=== PATIENT | female | born 1985 | race Caucasian/White ===

== ENCOUNTER 2016-07-06 22:23 | Inpatient (IN) | payer OTHER ==
[~2016-07-06] VITALS: Ht 165.1 cm; Wt 84.0 kg
[~2016-07-06 22:23] MED LIST: FERR-55 PO; PREN1TAB49 PO
[2016-07-07] MEDS ORDERED: ACETAMINOPHEN 500 MG TAB PO ONE (00:09)
[2016-07-07 00:10] VITALS: Ht 165.1 cm; Wt 84.0 kg
[2016-07-07 00:11] VITALS: BP 125/83; PULSE 117; RESP 20
[2016-07-07] MEDS ORDERED: NITR-58 PO (00:15)
[2016-07-07] MEDS: SOD CHLORIDE 0.9% 1,000 ML IV SCH ×4 (00:31→23:30)
--- NOTE | 2016-07-07 00:39 | HP ---
Date/Time of Note Date/Time of Note DATE: 07/07/16 TIME: 00:30 OB - History Hx of Present Free Text/Dictation Pt is a 30yo at 36+2 presenting with 2d hx of total body aches, fevers and chills. Pt reports hx of UTI 2wks ago for which she took Nitrofurantoin. In the clinic today she was given another Rx for the same antibiotic. Pt denies dysuria , contractions, LOF or VB. Reports normal FM. Estimated Due Date: August 01, 2016 : 3 Para: 2 Care: Good Care Obstetrical Complications: None Medical Complications: None Past Family/Social History * Past Medical, Surgical, Family and Obstetric Histories reviewed from chart. Blood Type: A+ Rubella: unknown RPR/VDRL: Negative GBS Status: Positive HBsAG: Negative OB Admission Exam Vital Signs Vital Signs Vital Signs Date Time Temp Pulse Resp B/P Pulse Ox O2 Delivery O2 Flow Rate FiO2 07/07/16 00:11 103.1 117 20 125/83 Room Air FHR 170s, diminished [id number] variability, +accels, no decels Back: bilateral CVAT R>L Physical Exam HEENT: WNL Heart: Other (tachycardia, normal rhythm) Lungs: Clear Abdomen: WNL Extremities: Normal Cervical Dilatation: 2cm Effacement: 50% Station: 0 (posterior) Membranes: Intact Contractions on Admission: < 5 Minutes Apart OB Assessment/Plan Reason for admission: other Other Assessment: Pyelonephritis Maternal and tachycardia Asymptomatic uterine contractions Other plan: 1)Pyelonephritis: -CBC, CMP -UA and UCx -Blood cultures x2 -IVF bolus -Tylenol 1g PO x1 now -IV Ceftriaxone 1g q24H 2)FWB: -Overall reassuring. Likely tachy 2/2 fever and infection. Suspect FHR will return to normal when fever resolves and maternal tachycardia improves -BPP, EFW -CEFM 3)Labor: -Pt possibly in early labor 2/2 infection -Admission labor labs ordered, including Rubella -Monitor for signs/sxs labor or resolution of UCs with IV hydration and management of infection Plan d/w pt. Questions answered to her satisfaction. KELSY IZQUIERDO MD July 07, 2016 00:39
[2016-07-07 01:02] LABS: ADD SCAN DIFF NO
[2016-07-07 01:05] LABS: ABNORMAL IP MESSAGE 1; BASOPHILS % 0.2 % (0.0-2.0); HEMOGLOBIN 11.4 g/dl (12.0-16.0); LYMPHOCYTES # 0.5 10^3/ul (0.8-2.9); MEAN CORPUSCULAR HEMOGLOBIN 31.1 pg (29.0-33.0); MEAN CORPUSCULAR HGB CONC 36.8 g/dl (32.0-37.0); MEAN CORPUSCULAR VOLUME 84.5 fl (82.0-101.0); MEAN PLATELET VOLUME 11.1 fl (7.4-10.4); MONOCYTE # 0.4 10^3/ul (0.3-0.9); MONOCYTES % 3.6 % (0.0-11.0); NEUTROPHIL # 9.9 10^3/ul (1.6-7.5); NEUTROPHILS % 90.6 % (39.0-77.0); PLATELET COUNT 153 10^3/UL (140-415); RED BLOOD COUNT 3.67 10^6/ul (4.20-5.40); WHITE BLOOD COUNT 10.9 10^3/ul (4.8-10.8)
[2016-07-07 01:06] LABS: ADD UMIC YES; URINE BILIRUBIN (Dip) NEGATIVE (NEGATIVE); URINE BLOOD (Dip) 2+ (NEGATIVE); URINE COLOR LT. YELLOW (YELLOW); URINE GLUCOSE (Dip) NEGATIVE (NEGATIVE); URINE KETONES (Dip) 40 (NEGATIVE); URINE LEUKOCYTE ESTERASE (Dip) 2+ (NEGATIVE); URINE NITRITE (Dip) NEGATIVE (NEGATIVE); URINE TOTAL PROTEIN (Dip) 1+ (NEGATIVE); URINE UROBILINOGEN (Dip) 0.2 E.U./dL (0.1-1.0)
[2016-07-07 01:23] LABS: SQUAMOUS EPITHELIAL CELL,UR MODERATE
[2016-07-07 01:24] LABS: BACTERIA,URINE MANY; MUCUS,URINE MODERATE
[2016-07-07 01:28] LABS: PARTIAL THROMBOPLASTIN TIME 29.7 Sec (25.0-35.0); PROTIME 13.2 Sec (12.2-14.2)
[2016-07-07 01:33] LABS: ALBUMIN/GLOBULIN RATIO 0.91
[2016-07-07 01:34] LABS: ALBUMIN 3.2 g/dl (3.3-4.9); BILIRUBIN,INDIRECT 0.7 mg/dl (0-1.1); BILIRUBIN,TOTAL 0.7 mg/dl (0.2-1.3); CALCIUM 8.5 mg/dl (8.4-10.2); CREATININE 0.49 mg/dl (0.44-1.00); POTASSIUM 3.1 mmol/L (3.5-5.1); TOTAL PROTEIN 6.7 g/dl (6.1-8.1)
--- NOTE | 2016-07-07 01:36 | RADRPT ---
PROCEDURE: Obstetrical ultrasound, limited. CLINICAL INDICATION: Pelvic pain. TECHNIQUE: Multiple sonographic images of the pelvis were obtained using transabdominal technique . Images were obtained with whipple scale and color Doppler. The images were reviewed on a PACS works tation. COMPARISON: No prior studies are available for comparison. FINDINGS: There is a single living intrauterine gestation with the fetus in a vertex presentation. hear t tones of 168 beats per minute are identified. The placenta is posterior in location, grade 2. Th ere is no evidence of placenta previa or abruption. Measurements were made in order to determine age. The results are as follows: BPD =9.12 cm HC =32.42 cm AC =32.52 cm FL =7.17 cm. Estimated gestational age of approximately 36 weeks and 5 days. The estimated date of delivery is 07/30/2016. The EFW = 2981 +/- 447 grams. Estimated weight percentage equals 61.4%. IMPRESSION: Single viable intrauterine gestation of approximately 36 weeks and 5 days, with an ultrasound TRAVIS of 07/30/2016. .Kulwant Clemente MD, MD Date Time Electronically viewed and signed by .Kulwant Clemente MD, MD on 07/07/2016 01:35 .T/
--- NOTE | 2016-07-07 02:06 | RADRPT ---
PROCEDURE: US OB biophysical profile. CLINICAL INDICATION: labor TECHNIQUE: Multiple sonographic images of the pelvis were obtained. The images were reviewed on a PACS workstation. COMPARISON: No pertinent prior examinations were submitted for comparison. FINDINGS: There is a single viable intrauterine gestation. Cardiac activity is present with 171 beats per min [place]. There is a vertex presentation. The placenta is posterior, grade 2 in appearance. There is a normal amount of amniotic fluid with an LIZ = 10 cm. Biophysical profile: movement 2/2 tone 2/2. breathing 2/2 LIZ 2/2 Total 10/09 IMPRESSION: Normal biophysical profile. RPTAT: HIKT . .Juan Rodriguez MD, MD Date Time Electronically viewed and signed by .Juan Rodriguez MD, on 07/07/2016 02:05 .T/
[2016-07-07] MEDS: CEFTRIAXONE 1 GM/50 ML (PMX) 50 ML IVPB SCH (02:33)
[2016-07-07] MEDS: ACETAMINOPHEN 325 MG TAB PO PRN ×3 (08:47→19:58)
[2016-07-07] MEDS: MULTIVIT/MIN/FOLATE/IRON/PREN TAB PO SCH (08:47)
[2016-07-07] MEDS: LACTATED RINGER'S 1,000 ML IV SCH ×3 (09:44→22:14)
[2016-07-07] MEDS ORDERED: GENTAMICIN 120 MG/NS (PMX) 100 ML IVPB SCH (10:00)
[2016-07-07] MEDS ORDERED: TERBUTALINE 1 ML ONE (10:04)
[2016-07-07] MEDS ORDERED: TERBUTALINE 1 MG/ML INJ SC ONE (10:30)
--- NOTE | 2016-07-07 12:45 | QN ---
Documentation Comment This is a 30 years old female 4 para 2 ,36 and 3 days , with a EDC of August 01, 2006 admitted to [facility] with the diagnosis of pyelonephritis, patient was placed on Rocephin 2 g every24 hour and gentamicin 120 mg every 8 hours ,at approximately 12:00 she spiked temperature to 101.2 following a brief chills, blood culture ordered 3 every 30 minute urine sent for culture and sensitivity cooling measure applied. HAMILTON AL MD July 07, 2016 12:45
[2016-07-07] MEDS: GENTAMICIN 80 MG/NS (PMX) 50 ML IVPB SCH (18:16)
[2016-07-08] MEDS: LACTATED RINGER'S 1,000 ML IV SCH ×5 (01:00→21:00)
[2016-07-08] MEDS: CEFTRIAXONE 1 GM/50 ML (PMX) 50 ML IVPB SCH (01:04)
[2016-07-08] MEDS: SOD CHLORIDE 0.9% 1,000 ML IV SCH ×2 (01:18→15:30)
[2016-07-08] MEDS: ACETAMINOPHEN 325 MG TAB PO PRN ×3 (01:30→18:57)
[2016-07-08] MEDS: GENTAMICIN 80 MG/NS (PMX) 50 ML IVPB SCH ×3 (02:15→17:34)
[2016-07-08] MEDS: MULTIVIT/MIN/FOLATE/IRON/PREN TAB PO SCH (09:16)
[2016-07-08] MEDS: PIPER-TAZO 3.375 GM IV (PMX) 100 ML IVPB SCH ×2 (12:03→18:09)
--- NOTE | 2016-07-08 15:37 | PN ---
Date/Time of Note Date/Time of Note DATE: 07/08/16 TIME: 15:24 OB Subjective Subjective Subjective Afebrile as of this morning spiked temperature to103 last night and 101.3 today at 1500, urine culture positive for E. coli over 100,000 she was placed on Zosyn 3/375gm every 6 hours while continuing gentamicin 80 mg every 8 hours, infectious disease consultation has been requested. HAMILTON AL MD July 08, 2016 15:34
--- NOTE | 2016-07-08 16:14 | RADRPT ---
PROCEDURE: Retroperitoneal ultrasound. CLINICAL INDICATION: Flank pain, recurrent urinary tract infections. TECHNIQUE: Gilmore scale and color doppler ultrasound images of the retroperitoneum, kidneys, urinary bladder COMPARISON: Pelvic ultrasound 07/07/2016 FINDINGS: Right kidney 12.7 cm in length. Right renal cortical thickness is preserved. Left kidney 13.5 cm in length. Left renal cortical thickness is preserved. Normal echogenicity. Mild prominence of the renal pelvis bilaterally without caliectasis. No renal calculi. No focal lesions. Bladder: Moderately distended without focal lesion IMPRESSION: Mild pelviectasis without caliectasis of both kidneys. No evidence of renal calculi. Moderately distended urinary bladder. RPTAT: AADD .James Cody MD, MD Date Time Electronically viewed and signed by .James Cody MD, on 07/08/2016 16:14 .B/
[2016-07-09] MEDS: PIPER-TAZO 3.375 GM IV (PMX) 100 ML IVPB SCH ×5 (00:23→23:52)
[2016-07-09] MEDS: GENTAMICIN 80 MG/NS (PMX) 50 ML IVPB SCH ×3 (02:41→17:35)
[2016-07-09] MEDS: LACTATED RINGER'S 1,000 ML IV SCH ×4 (03:11→21:02)
[2016-07-09] MEDS: ACETAMINOPHEN 325 MG TAB PO PRN ×2 (07:54→19:38)
[2016-07-09] MEDS: MULTIVIT/MIN/FOLATE/IRON/PREN TAB PO SCH (09:16)
--- NOTE | 2016-07-10 01:51 | PN ---
Date/Time of Note Date/Time of Note DATE: 07/10/16 TIME: 01:49 OB Subjective Subjective Subjective feels much better OB Objective Objective Objective CVA neg for tenderness urine culture E-coli >100,000 OB Assessment/Plan Other Assessment: IUP 36weeks BUSINESS TRAVEL CONSULTANT Other plan: poss d/s today TAVON MANDUJANO MD July 10, 2016 01:51
[2016-07-10] MEDS: GENTAMICIN 80 MG/NS (PMX) 50 ML IVPB SCH ×3 (02:48→17:46)
[2016-07-10] MEDS: PIPER-TAZO 3.375 GM IV (PMX) 100 ML IVPB SCH ×4 (05:38→23:26)
[2016-07-10] MEDS: LACTATED RINGER'S 1,000 ML IV SCH ×3 (05:38→15:48)
[2016-07-10] MEDS: MULTIVIT/MIN/FOLATE/IRON/PREN TAB PO SCH (09:15)
--- NOTE | 2016-07-10 17:29 | QN ---
Documentation Comment She has been afebrile for 48 hours currently resting and has no complaint of flank pain or any other discomfort, I was contemplating to discharge with follow -up at the outpatient clinic but reviewing heart tracing there has been several occasion of variable deceleration, for that reason I recommend further observation in the hospital while on continuous monitoring, she will be 37 weeks a.m.' perinatology consult requested Plan pending perinatology recommendation HAMILTON AL MD July 10, 2016 17:29
[2016-07-10] MEDS ORDERED: ONDANSETRON 4 MG INJ IV PRN (18:30)
[2016-07-10] MEDS ORDERED: AL HYDROX/MG HYDROX/SIMETH 30 ML CUP PO PRN (18:30)
--- NOTE | 2016-07-10 19:21 | RADRPT ---
PROCEDURE: OB ultrasound for biophysical profile CLINICAL INDICATION: Biophysical profile. . TECHNIQUE: Multiple sonographic images of the pelvis were obtained. Transabdominal views are obta ined. COMPARISON: 07/07/2016 FINDINGS: Single intrauterine gestation. Presentation: Cephalic. Placenta: Posterior No evidence of placental abruption. No evidence of placenta previa. breathing movement = 2/2 tone = 2/2 motion = 2/2 LIZ = 2/2 LIZ = 18.2 cm heart rate: 130 beats per minute IMPRESSION: Single intrauterine gestation. Biophysical profile 10/09 RPTAT: AADD .James Cody MD, MD Date Time Electronically viewed and signed by .James Cody MD, on 07/10/2016 19:21 .B/
[2016-07-11] MEDS: LACTATED RINGER'S 1,000 ML IV SCH ×3 (02:41→20:43)
[2016-07-11] MEDS: GENTAMICIN 80 MG/NS (PMX) 50 ML IVPB SCH ×3 (02:41→18:00)
[2016-07-11] MEDS: PIPER-TAZO 3.375 GM IV (PMX) 100 ML IVPB SCH ×3 (06:28→18:00)
[2016-07-11] MEDS: MULTIVIT/MIN/FOLATE/IRON/PREN TAB PO SCH (09:07)
--- NOTE | 2016-07-11 11:20 | CONS ---
DATE OF ADMISSION: 07/06/2016 DATE OF CONSULTATION: 07/11/2016 I was consulted to assess the patient's heart tone monitoring. She was admitted since 017 for pyelonephritis. She is on appropriate antibiotics and has been afebrile since 07/08/2016 at 3:00 p.m. RECOMMENDATIONS: After review of the strip is delivery as she has been experiencing after majority of contractions late deceleration and she is 37 weeks . Do please note that she needs to be in total 14 days of antibiotics. After 48 hours of IV antibiotics, the medication can be switched to p.o. and the p.o. medication should be based on the sensitivity of report and should be continued to cover 14 days. Dictated By: NASH MCCANN/SHAYLA Conf#: [id number] DID#: [id number]
[2016-07-11] MEDS ORDERED: BUTORPHANOL 2 MG INJ IV PRN (13:00)
[2016-07-11] MEDS ORDERED: IBUPROFEN 600 MG TAB PO PRN (13:00)
[2016-07-11] MEDS ORDERED: LIDOCAINE 1% (MPF) 30 ML INJ INJ PRN (13:00)
[2016-07-11] MEDS ORDERED: OXYTOCIN 30 UNITS/LR 500 ML IV SCH ×4 (13:00→16:00)
[2016-07-11] MEDS ORDERED: LACTATED RINGER'S 1,000 ML IV PRN (14:00)
[2016-07-11] MEDS ORDERED: CEFAZOLIN 2 GM/50 ML (PMX) 50 ML IV SCH (16:00)
[2016-07-11 16:16] LABS: ADD SCAN DIFF NO
[2016-07-11] MEDS ORDERED: ONDANSETRON 4 MG INJ IV STA (16:16)
[2016-07-11] MEDS ORDERED: CITRIC ACID/SODIUM CITRATE 15 ML CUP ONE (16:17)
[2016-07-11 16:20] LABS: BASOPHILS % 0.5 % (0.0-2.0); EOSINOPHILS # 0.1 10^3/ul (0.0-0.5); EOSINOPHILS % 0.8 % (0.0-7.0); HEMATOCRIT 26.4 % (37.0-47.0); HEMOGLOBIN 9.5 g/dl (12.0-16.0); LYMPHOCYTES # 1.7 10^3/ul (0.8-2.9); LYMPHOCYTES % 27.3 % (15.0-51.0); MEAN CORPUSCULAR HEMOGLOBIN 30.2 pg (29.0-33.0); MEAN CORPUSCULAR VOLUME 83.8 fl (82.0-101.0); MEAN PLATELET VOLUME 10.2 fl (7.4-10.4); MONOCYTE # 0.5 10^3/ul (0.3-0.9); MONOCYTES % 7.8 % (0.0-11.0); NEUTROPHILS % 62.8 % (39.0-77.0); PLATELET COUNT 187 10^3/UL (140-415); RED BLOOD COUNT 3.15 10^6/ul (4.20-5.40); RED CELL DISTRIBUTION WIDTH 13.2 % (11.5-14.5); WHITE BLOOD COUNT 6.4 10^3/ul (4.8-10.8)
[2016-07-11] MEDS ORDERED: CITRIC ACID/SODIUM CITRATE 15 ML CUP PO ONE (16:30)
[2016-07-11 16:35] LABS: INR 0.97; PARTIAL THROMBOPLASTIN TIME 27.8 Sec (25.0-35.0); PROTIME 12.9 Sec (12.2-14.2)
[2016-07-11] MEDS ORDERED: FENTAnyl 50 MCG/ML VIAL ONE (16:49)
[2016-07-11] MEDS ORDERED: morphine SULFATE/PF (10 MG/10 ML) INJ ONE (16:49)
[2016-07-11] MEDS ORDERED: PHENYLephrine (100 MCG/ML) 5ML SYG ONE (16:49)
[2016-07-11] MEDS ORDERED: METOCLOPRAMIDE 10 MG INJ ONE (16:49)
[2016-07-11] MEDS ORDERED: OXYTOCIN 10 UNIT INJ ONE (16:49)
[2016-07-11] MEDS ORDERED: hydrALAzine 20 MG INJ IV PRN (17:30)
[2016-07-11] MEDS ORDERED: MIDAZOLAM 1 MG/ML 2 ML INJ IV PRN (17:30)
[2016-07-11] MEDS ORDERED: TRIMETHOBENZAMIDE 100 MG/ML VIAL IM PRN (17:30)
[2016-07-11] MEDS ORDERED: NALOXONE (0.4 MG/ML) INJ IV PRN (17:30)
[2016-07-11] MEDS ORDERED: ONDANSETRON 4 MG INJ IV PRN ×2 (17:30)
[2016-07-11] MEDS ORDERED: DIPHENHYDRAMINE 50 MG INJ IV PRN ×2 (17:30)
[2016-07-11] MEDS ORDERED: LABETALOL HCL 20MG INJ IV PRN (17:30)
[2016-07-11] MEDS ORDERED: ZOLPIDEM 5 MG TAB PO PRN (17:30)
[2016-07-11] MEDS ORDERED: EPHEDrine SULFATE 50 MG/5 ML SYG IV PRN (17:30)
[2016-07-11] MEDS ORDERED: HYDROmorphONE (0.2 MG/ML) 10ML SYG IV PRN ×3 (17:30)
[2016-07-11] MEDS ORDERED: MEPERIDINE 25 MG INJ IV PRN (17:30)
[2016-07-11] MEDS ORDERED: morphine 2 MG INJ IV PRN ×2 (17:30)
[2016-07-11] MEDS ORDERED: FENTAnyl 50 MCG/ML VIAL IV PRN ×3 (17:30)
--- NOTE | 2016-07-11 18:01 | HP ---
Date/Time of Note Date/Time of Note DATE: 07/11/16 TIME: 17:47 OB - History Hx of Present Free Text/Dictation This is a 30 years old female 4 para living child to IAB 1 admitted to [facility] due to nonreassuring heart tracing while patient was at perinatology clinic she was referred to the hospital for extended observation she can continued having late variable deceleration with every contraction underwent oxytocin challenge test that was positive, baby's intolerance to contraction discussed with him and the plan delivery by decided she was informed of complication of the surgery including bowel bladder injury infection hemorrhage and hematoma she is willing to proceed with the operation Estimated Due Date: August 01, 2016 : 4 Para: 2 Therapeutic : 1 Care: Good Care Ultrasounds: Normal mid trimester US Obstetrical Complications: None, Autoimmune Disease Medical Complications: None Past Family/Social History * Past Medical, Surgical, Family and Obstetric Histories reviewed from chart. Rubella: immune RPR/VDRL: Negative GBS Status: Negative HBsAG: Negative OB Admission Exam Physical Exam HEENT: WNL Heart: Rhythm Normal Lungs: Clear, Equal Abdomen: WNL Extremities: Normal Reflexes: Normal Cervical Dilatation: None Effacement: 0% Membranes: Intact Heart Rate: 130's Decelerations: Late Decelarations Varibility: Moderate Contractions on Admission: >10 Minutes Apart Intensity: Mild Last 72 hours Lab Results CBC & BMP 07/11/16 16:00 OB Assessment/Plan Reason for admission: other (Primary for nonreassuring heart tracing category 3 intolerance to contraction) Induction Method: other (Primary ) HAMILTON AL MD July 11, 2016 17:58
--- NOTE | 2016-07-11 18:17 | OPR ---
DATE OF OPERATION: 07/11/2016 PREOPERATIVE DIAGNOSES: Intrauterine at 37 weeks' gestation, nonreassuring heart tr acing category 3, recommended by perinatology delivery. The patient failed oxytocin challenge test. POSTOPERATIVE DIAGNOSES: Intrauterine at 37 weeks' gestation, nonreassuring heart t racing category 3, recommended by perinatology delivery. The patient failed oxytocin challenge test . OPERATION PERFORMED: Primary transverse low cervical section. SURGEON: Hamilton Morales MD MUSIC AGENT: Aylin Medrano MD ANESTHESIA: Spinal. ANESTHESIOLOGIST: Andreas Sawyer MD FINDINGS: Live baby boy with of 8 and 9. Baby weighed 7 pounds 7 ounces. DETAILS OF THE PROCEDURE: Under satisfactory spinal anesthesia, the patient was prepped and draped and placed in supine position, tilted to the left. Pfannenstiel incision was made, carried through the subcutaneous tissue. Bleeders brought under control with electrocautery. Fascia incised to the length of the incision. Rectus muscle divided in midline. Peritoneum exposed, entered through a t ransverse incision. Exploration of abdomen, gravid uterus, normal appearing tubes and ovaries. Byron dder flap was developed. Transverse incision was made in the lower segment of the uterus. Amniotic sac ruptured. Clear amniotic fluid noted. Live baby boy was delivered from unengaged vertex. Constantin al oropharyngeal suction was performed. Baby handed to the team for immediate attention. The patient received 20 units of Pitocin. Placenta delivered manually intact. Uterine cavity clean ed with wet sponge and drainage established. Uterus closed in 2 layers using Monocryl #1 in continu ous fashion. Peritoneal cavity irrigated with warm saline. Sponge, needle and instrument reported to be correct. Abdominal peritoneum closed with 2-0 chromic catgut continuously. Rectus muscle approximated with few interrupted 2-0 chromic catgut. Fascia closed with #1 PDS in a continuous fashion. Subcutaneo us tissue approximated with interrupted 2-0 chromic catgut. Skin closed with jeaneth. Estimated bl ood loss 600 mL. Urine bag contained 200 mL of clear urine. The patient tolerated the procedure we ll, transferred to recovery room in a good condition. Dictated By: HAMILTON HERNANDEZ/NTS Conf#: [id number] DID#: [id number]
[2016-07-11] MEDS ORDERED: METHYLERGONOVINE 0.2 MG INJ IM ONE (19:30)
[2016-07-11] MEDS: KETOROLAC 30 MG INJ IV PRN (20:29)
--- NOTE | 2016-07-11 21:10 | DELSUM ---
Delivery Summary A-C Datetime Report Generated by CPN: 07/11/2016 21:09 DELIVERY PERSONNEL Retail Client Solutions Analyst: Liat, Padmini MATERNAL INFORMATION Delivery Anesthesia: Spinal Medications in Delivery: OXYTOCIN Placenta Cultured: No Maternal Complications: Other Other Maternal Complications: LATE DECELERATIONS, CATEGORY II TRACING LABOR SUMMARY EDC: 08/01/2016 00:00 No. Babies in Womb: 1 Attempted: No Labor Anesthesia: None LABOR INFORMATION Reason for Induction: Not Applicable Oxytocin: N/A Group B Beta Strep: Positive Antibiotics # of Doses: 1 Antibiotics Time of Last Dose: 07/11/2016 16:51 Steroids Given: None Reason Steroids Not Administered: Not Applicable MEMBRANES Membranes Rupture Method: Artificial Rupture of Membranes: 07/11/2016 17:17 Length of Rupture (hr): 0.02 Amniotic Fluid Color: Clear Amniotic Fluid Amount: Moderate Amniotic Fluid Odor: None STAGES OF LABOR Stage 3 hr: 0 Stage 3 min: 2 CSECTION DELIVERY Primary Indication: Nonreassuring Stat Secondary Indication: N/A CSection Urgency: Elective CSection Incidence: Primary Labor: No Labor Elective: Elective CSection Incision: Lower Uterine Transverse BABY A INFORMATION Infant Delivery Date/Time: 07/11/2016 17:18 Method of Delivery: Born in Route : No : N/A Forceps: N/A Vacuum Extraction: N/A Shoulder Dystocia : N/A SHOULDER DYSTOCIA BABY A Infant Delivery Date/Time: 07/11/2016 17:18 PRESENTATION/POSITION BABY A Presentation: Cephalic Cephalic Presentation: Vertex Vertex Position: Left Occipital Anterior Breech Presentation: N/A PLACENTA INFORMATION BABY A Placenta Delivery Time : 07/11/2016 17:20 Placenta Method of Delivery: Manual Removal Placenta Status: Delivered SCORES BABY A Heart Rate 1 min: >100 bpm Resp Effort 1 min: Good Cry Reflex Irritability 1 min: Cough/Sneeze/Pulls Away Muscle Tone 1 min: Active Motion Color 1 min: Blue/Pale Resuscitation Effort 1 min: Tactile Stimulation; Oxygen SCORE 1 MIN: 8 Heart Rate 5 min: >100 bpm Resp Effort 5 min: Good Cry Reflex Irritability 5 min: Cough/Sneeze/Pulls Away Muscle Tone 5 min: Active Motion Color 5 min: Body [place], Extremit Blue Resuscitation Effort 5 min: Tactile Stimulation SCORE 5 MIN: 9 INFORMATION BABY A Gestational Age at Delivery: 37.0 Gestational Status: Early Term- 37- 38.6 Weeks Infant Outcome : Liveborn Condition : Stable Sex: Male IDENTIFICATION/MEDS BABY A ID Band Number: [id number] ID Band Location: Right Leg; Left Arm Sensor Applied: Yes Sensor Number: [id number] Sensor Location : Cord Clamp Vitamin K Given : Not Given Erythromycin Given: Deferred by Parents WEIGHT/LENGTH BABY A Infant Birthweight (gm): 3370 Weight (lb): 7 Weight (oz): 7 Infant Length (in): 19.00 Infant Length (cm): 48.26 CORD INFORMATION BABY A No. Cord Vessels: 3 Nuchal Cord : N/A Cord Blood Taken: Yes Suction: Mouth; Nose ASSESSMENT BABY A Infant Complications: None Physical Findings at Delivery: Within Normal Limits Infant Respirations: Appears Normal Ticket Collector Or Usher/ALS Called : No Infant Care By: CECY IRVIN RN Transferred To: Remains with Mother
--- NOTE | 2016-07-11 21:13 | DELSUM ---
Delivery Summary A-C Datetime Report Generated by CPN: 07/11/2016 21:13 DELIVERY PERSONNEL Music Adapter: Liat, Padmini MATERNAL INFORMATION Delivery Anesthesia: Spinal Medications in Delivery: OXYTOCIN Placenta Cultured: No Maternal Complications: Other Other Maternal Complications: LATE DECELERATIONS, CATEGORY II TRACING LABOR SUMMARY EDC: 08/01/2016 00:00 No. Babies in Womb: 1 Attempted: No Labor Anesthesia: None LABOR INFORMATION Reason for Induction: Not Applicable Oxytocin: N/A Group B Beta Strep: Positive Antibiotics # of Doses: 1 Antibiotics Time of Last Dose: 07/11/2016 16:51 Steroids Given: None Reason Steroids Not Administered: Not Applicable MEMBRANES Membranes Rupture Method: Artificial Rupture of Membranes: 07/11/2016 17:17 Length of Rupture (hr): 0.02 Amniotic Fluid Color: Clear Amniotic Fluid Amount: Moderate Amniotic Fluid Odor: None STAGES OF LABOR Stage 3 hr: 0 Stage 3 min: 2 CSECTION DELIVERY Primary Indication: Nonreassuring Stat Secondary Indication: N/A CSection Urgency: Elective CSection Incidence: Primary Labor: No Labor Elective: Elective CSection Incision: Lower Uterine Transverse BABY A INFORMATION Infant Delivery Date/Time: 07/11/2016 17:18 Method of Delivery: Born in Route : No : N/A Forceps: N/A Vacuum Extraction: N/A Shoulder Dystocia : N/A SHOULDER DYSTOCIA BABY A Infant Delivery Date/Time: 07/11/2016 17:18 PRESENTATION/POSITION BABY A Presentation: Cephalic Cephalic Presentation: Vertex Vertex Position: Left Occipital Anterior Breech Presentation: N/A PLACENTA INFORMATION BABY A Placenta Delivery Time : 07/11/2016 17:20 Placenta Method of Delivery: Manual Removal Placenta Status: Delivered SCORES BABY A Heart Rate 1 min: >100 bpm Resp Effort 1 min: Good Cry Reflex Irritability 1 min: Cough/Sneeze/Pulls Away Muscle Tone 1 min: Active Motion Color 1 min: Blue/Pale Resuscitation Effort 1 min: Tactile Stimulation; Oxygen SCORE 1 MIN: 8 Heart Rate 5 min: >100 bpm Resp Effort 5 min: Good Cry Reflex Irritability 5 min: Cough/Sneeze/Pulls Away Muscle Tone 5 min: Active Motion Color 5 min: Body [place], Extremit Blue Resuscitation Effort 5 min: Tactile Stimulation SCORE 5 MIN: 9 INFORMATION BABY A Gestational Age at Delivery: 37.0 Gestational Status: Early Term- 37- 38.6 Weeks Infant Outcome : Liveborn Condition : Stable Sex: Male IDENTIFICATION/MEDS BABY A ID Band Number: [id number] ID Band Location: Right Leg; Left Arm Sensor Applied: Yes Sensor Number: [id number] Sensor Location : Cord Clamp Vitamin K Given : Not Given Erythromycin Given: Deferred by Parents WEIGHT/LENGTH BABY A Infant Birthweight (gm): 3370 Weight (lb): 7 Weight (oz): 7 Infant Length (in): 19.00 Infant Length (cm): 48.26 CORD INFORMATION BABY A No. Cord Vessels: 3 Nuchal Cord : N/A Cord Blood Taken: Yes Suction: Mouth; Nose ASSESSMENT BABY A Infant Complications: None Physical Findings at Delivery: Within Normal Limits Infant Respirations: Appears Normal Wind Technician/ALS Called : No Infant Care By: CECY IRVIN RN Transferred To: Remains with Mother
[2016-07-11 21:30] VITALS: BP 140/90; PULSE 72; RESP 18
[2016-07-11 22:00] VITALS: BP 122/72; PULSE 77; RESP 18
[2016-07-11] MEDS ORDERED: MISOPROSTOL 200 MCG TAB PR PRN (22:30)
[2016-07-11] MEDS ORDERED: OXYTOCIN 30 UNITS/LR 500 ML IV PRN (22:30)
[2016-07-11] MEDS ORDERED: ACETAMINOPHEN/CODEINE #3 TAB PO PRN (22:30)
[2016-07-11] MEDS ORDERED: CEFAZOLIN 1 GM/50 ML (PMX) 50 ML IVPB SCH (22:30)
[2016-07-11] MEDS ORDERED: CARBOPROST 250 MCG INJ IM PRN (22:30)
[2016-07-11] MEDS ORDERED: LANOLIN 7 GM TUBE TOP PRN (22:30)
[2016-07-11] MEDS ORDERED: METHYLERGONOVINE 0.2 MG INJ IM PRN (22:30)
[2016-07-11] MEDS ORDERED: OXYCODONE/ACETAMINOPHEN (5/325) TAB PO PRN ×2 (22:30)
[2016-07-11 23:00] VITALS: BP 126/82; PULSE 76; RESP 18
[2016-07-12] MEDS: OXYTOCIN 30 UNITS/LR 500 ML IV SCH ×2 (01:24→06:44)
[2016-07-12 04:00] VITALS: BP 130/76; PULSE 78; RESP 18
[2016-07-12 08:17] LABS: ADD SCAN DIFF NO
[2016-07-12 08:25] VITALS: BP 113/59; PULSE 56; RESP 20
[2016-07-12 08:32] LABS: BASOPHILS % 0.2 % (0.0-2.0); EOSINOPHILS # 0.1 10^3/ul (0.0-0.5); EOSINOPHILS % 0.8 % (0.0-7.0); HEMATOCRIT 25.6 % (37.0-47.0); HEMOGLOBIN 8.9 g/dl (12.0-16.0); LYMPHOCYTES # 1.7 10^3/ul (0.8-2.9); MEAN CORPUSCULAR HEMOGLOBIN 29.3 pg (29.0-33.0); MEAN CORPUSCULAR HGB CONC 34.8 g/dl (32.0-37.0); MEAN CORPUSCULAR VOLUME 84.2 fl (82.0-101.0); MEAN PLATELET VOLUME 10.9 fl (7.4-10.4); MONOCYTE # 0.6 10^3/ul (0.3-0.9); MONOCYTES % 6.9 % (0.0-11.0); NEUTROPHILS % 71.4 % (39.0-77.0); PLATELET COUNT 183 10^3/UL (140-415); RED BLOOD COUNT 3.04 10^6/ul (4.20-5.40); WHITE BLOOD COUNT 8.5 10^3/ul (4.8-10.8)
[2016-07-12] MEDS: KETOROLAC 30 MG INJ IV PRN (08:53)
[2016-07-12] MEDS: SENNA/DOCUSATE NA (8.6MG/50MG) TAB PO SCH ×2 (08:54→21:53)
[2016-07-12 12:20] VITALS: BP 117/68; RESP 20
[2016-07-12 16:00] VITALS: BP 107/72; PULSE 69; RESP 18
[2016-07-12] MEDS: IBUPROFEN 600 MG TAB PO SCH (18:31)
[2016-07-12 19:45] VITALS: BP 112/72; PULSE 78; RESP 18
[2016-07-13] MEDS: IBUPROFEN 600 MG TAB PO SCH ×4 (00:14→18:19)
--- NOTE | 2016-07-13 01:08 | QN ---
Documentation Comment ppd1 afebrile abdomen soft bs present ext normal HAMILTON AL MD July 13, 2016 01:08
--- NOTE | 2016-07-13 01:11 | QN ---
Documentation Comment afebrile abdomen soft bs present no bm enema ordered ext normal. HAMILTON AL MD July 13, 2016 01:11
[2016-07-13 03:58] VITALS: BP 103/59; PULSE 56; RESP 18
[2016-07-13 08:00] VITALS: BP 113/79; PULSE 60; RESP 20
[2016-07-13] MEDS: ACETAMINOPHEN/CODEINE #3 TAB PO PRN ×2 (10:13→16:28)
[2016-07-13] MEDS: SENNA/DOCUSATE NA (8.6MG/50MG) TAB PO SCH ×2 (10:13→21:26)
[2016-07-13 16:00] VITALS: BP_SYST 115; BP_SYST 129; BP_DIAS 80; PULSE 78; RESP 19; RESP 20
[2016-07-13 19:35] VITALS: BP 125/80; PULSE 68; RESP 18
[2016-07-14] MEDS: IBUPROFEN 600 MG TAB PO SCH ×3 (00:13→12:47)
[2016-07-14 04:15] VITALS: BP 118/73; PULSE 71; RESP 18
[2016-07-14 08:20] VITALS: BP 115/69; PULSE 60; RESP 20
[2016-07-14] MEDS ORDERED: DIPHTH/TET/ACEL PERTUSS (ADULT) 0.5 ML VIAL IM* ONE (09:00)
[2016-07-14] MEDS: ACETAMINOPHEN/CODEINE #3 TAB PO PRN (09:45)
[2016-07-14] MEDS: SENNA/DOCUSATE NA (8.6MG/50MG) TAB PO SCH (09:45)
--- NOTE | 2016-07-14 12:56 | PD.PPDC ---
HORSE STUD WORKER Discharge Instruction Condition Patient Condition: Good Diet Diet: Resume Regular Diet Activity/Restrictions Activity: Normal Activity May Shower Restrictions: No Exercising No Lifting No Driving No Sexual Activity Nothing in the Vagina No [place] No Tampons, douche Wound/Drain Care Instructions Wound/Drain Care Instructions: Remove Steri Strips in 1 week Follow-up Follow-up with Physician: 4, Day/Days Provider Information: Appointment to the clinic in 4 days to discontinue jeaneth Return to clinic for EXTERMINATION SUPERVISOR Instructions: Fever greater than 101 Worsening abdominal pain Excessive Vaginal Bleeding More than 2 pads per hour Unable to tolerate diet OB Instructions: Breast Tenderness Depression Blurried Vision Headache Surgical Instructions: Incisional Drainage Incisional Redness HAMILTON AL MD July 14, 2016 12:56
--- NOTE | 2016-07-14 13:01 | DS ---
Date/Time of Note Date/Time of Note DATE: 07/14/16 TIME: 12:58 Discharge Summary Admission/Discharge Info Admit Date/Time July 06, 2016 at 23:50 Discharge Date/Time Jul 14 2016 at 1300 Final Diagnosis 37 weeks primary due to nonreassuring heart tracing C- section delivery recommended by the perinatologist Patient Condition: Good Consults Perinatologist Procedures Primary Hx of Present Illness 37 weeks nonreassuring heart tracing category 2 and 3 delivery recommended Hospital Course Uneventful satisfactory Home Meds Reported Medications Nitrofurantoin Monohyd Macrocr* (Macrobid*) 100 Mg Capsr, 100 MG PO BID, CAP 07/07/16 Ferrous Sulfate* (Ferrous Sulfate*) 325 Mg Tablet, 325 MG PO 06/07/12 Vits W-Ca,Fe,Fa(<1MG) () 1 Tab Tablet, 1 TAB PO d 06/07/12 Follow-up Plan Appointment clinic in 4 days to discontinue HAMILTON Ramirez MD July 14, 2016 13:01
== END 2016-07-14 17:21 | disposition home or self-care (01) | DRG 766 ==
LOC: OBT 22:23 → L-D 22:24 → OBT 23:49 → L-D 23:50 → OBG 07-07 23:20 → L-D 07-11 11:32 → PP1 07-11 21:32
PROVIDERS: ADMIT Obstetrics & Gynecology; ATTEND Obstetrics & Gynecology
PROC: 10D00Z1 Extraction of Products of Conception, Low, Open Approach (ICD-10-PCS; principal; 2016-07-11 16:30)
DX: O76 Abnormality in fetal heart rate and rhythm complicating labor and delivery (principal); Z37.0 Single live birth; Z3A.37 37 weeks gestation of pregnancy
CPT/HCPCS: 36415; 76775; 76815; 76818; 80053; 81001; 81003; 85025; 85610; 85730; 86592; 86850; 86900; 86901; 87040; 87086; 87340; 90715; 94760; 99464; G0463; J0690; J0696; J1580; J1885; J2210; J2274; J2370; J2405; J2543; J2590; J2765; J3010; J3105; J7030; J7120